=== PATIENT | female | born 1965 | race Caucasian/White ===

== ENCOUNTER 2020-01-29 10:41 | Day surgery (SDC) | payer BC ==
[2020-01-28 10:01] VITALS: BMI 28.1
[~2020-01-29 10:41] MED LIST: ALBUTEROL NEB (CONC) 2.5 MG/0.5 ML INHALATION ONE; LACTATED RINGERS 1,000 ML IV SCH; LIDOCAINE 1% (10MG/ML) FOR IV START INTRADERMA PRN; LIDOCAINE 2% (PF) 20 MG/ML 5 ML VIAL INHALATION ONE; LIDOCAINE VISCOUS 300 MG/15 ML CUP MUCOUS MEM ONE; SODIUM CHLORIDE 0.9% 1,000 ML IV SCH
[2020-01-29] MEDS ORDERED: MIDAZOLAM 2 MG/2 ML VIAL IV ONE (11:48)
[2020-01-29] MEDS ORDERED: PROPOFOL 10 MG/ML 20 ML VIAL IV ONE (12:00)
[2020-01-29] MEDS ORDERED: LIDOCAINE 1% INJ 10MG/ML (20 ML MDV) ONE (12:00)
[2020-01-29] MEDS ORDERED: SUCCINYLCHOLINE CHLORIDE 100 MG/5 ML SYR IV ONE (12:00)
[2020-01-29 12:39] VITALS: TEMP 98.4
[2020-01-29 12:55] VITALS: RESP 16
[2020-01-29 13:28] VITALS: BP 115/69; PULSE 67
--- NOTE | 2020-01-29 15:16 | PCN ---
PROCEDURE NOTE PROCEDURE: Bronchoscopy and bronchoalveolar lavage of the lingula, right middle lobe, and left lower lobe. PREOPERATIVE DIAGNOSIS: Atypical pneumonia, a tree-in-bud appearance on CT of the chest. POSTOPERATIVE DIAGNOSIS: Atypical pneumonia. ANESTHESIA: Used general anesthesia, the patient was intubated prior to the procedure. PROCEDURE DESCRIPTION: Patient was placed in the supine position, she was anesthetized and intubated by [employer] prior to the procedure. After intubation, we were monitored, her O2 saturation continuously, blood pressure was intermittently monitored, and cardiac rhythm was continuously monitored. The bronchoscope was advanced through the endotracheal tube adapter and advanced all the way to the distal trachea. Examination was done of the distal trachea, [place], right upper lobe, right middle lobe, right lower lobe, left upper lobe, lingula, and left lower lobe. There was no evidence of any endobronchial tumors. There was no evidence of any purulent secretions, there was no evidence of any abnormal mucosa in the airways. Then the bronchoscope was wedged in the lingula, and lavage of the lingula was done. Then, we moved down to the left lower lobe. Another lavage was done roughly using 100 mL with each lavage. Then, we moved down to the right middle lobe, and lavage of the right middle lobe was done. All the lavages from different lobes were collected, and sent for different diagnostic studies including viral cultures, AFB cultures and stains, routine cultures, and fungal cultures. Procedure was well tolerated, no evidence of any immediate complications. MMODL / IJN: [id number] /
[2020-01-29 15:46] LABS: Appearance,BF Clear; Color,BF Colorless; Nucleated Cells, Body Fluid 2 /uL
[2020-01-29 15:47] LABS: RBC, Body Fluid 44 /uL
== END 2020-01-29 14:03 | disposition home or self-care (01) ==
LOC: ORWHC2ENDO 10:41
PROVIDERS: ATTEND Internal Medicine
DX: J18.9 Pneumonia, unspecified organism (principal); J45.20 Mild intermittent asthma, uncomplicated; J30.2 Other seasonal allergic rhinitis; H65.90 Unspecified nonsuppurative otitis media, unspecified ear; H69.90 Unspecified Eustachian tube disorder, unspecified ear; J01.90 Acute sinusitis, unspecified; J20.9 Acute bronchitis, unspecified; R94.5 Abnormal results of liver function studies; N20.0 Calculus of kidney; L03.90 Cellulitis, unspecified; R53.81 Other malaise; R53.83 Other fatigue; F41.1 Generalized anxiety disorder; Z88.6 Allergy status to analgesic agent; Z88.2 Allergy status to sulfonamides; Z11.59 Encounter for screening for other viral diseases; Z79.899 Other long term (current) drug therapy; Z79.1 Long term (current) use of non-steroidal anti-inflammatories (NSAID); Z98.890 Other specified postprocedural states; Z90.710 Acquired absence of both cervix and uterus; Z98.49 Cataract extraction status, unspecified eye; Z80.1 Family history of malignant neoplasm of trachea, bronchus and lung; Z82.5 Family history of asthma and other chronic lower respiratory diseases
CPT/HCPCS: 94640; 89050; 87252; 87070; 87205; 87075; 87116; 87102; 87206; 87635; 31624; J2250; J2001 ×2; J0330; J2704; 87496; 87498; 87502; 87529; 87634; 87798; 88108; 88305

== ENCOUNTER → 2020-05-06 | Outpatient (CLI) | payer BC ==
[2020-05-06 18:31] LABS: African American GFR (CKD) 96.2 (60.0-200.0); Anion Gap 9.6 mmol/L (4.00-12.00); BUN/Creat Ratio 26.25 Ratio (12.00-20.00); Calcium 9.3 mg/dL (8.7-10.3); Carbon Dioxide 24.4 mmol/L (21.6-31.8); Potassium 4.6 mmol/L (3.5-5.5)
== END | disposition home or self-care (01) ==
LOC: LABWHC1 10:52
PROVIDERS: ATTEND Internal Medicine Cardiovascular Disease
DX: I10 Essential (primary) hypertension (principal)
CPT/HCPCS: 36415; 80048

== ENCOUNTER → 2020-10-27 | Outpatient (CLI) | payer BC ==
--- NOTE | 2020-10-27 17:31 | CT ---
EXAMINATION TYPE: CT chest angio for PE DATE OF EXAM: 10/27/2020 COMPARISON: Radiograph 09/10/2020. HISTORY: chest congestion, hx of covid CT DLP: 592 mGycm Automated exposure control for dose reduction was used. CONTRAST: CT Chest for pulmonary embolism performed with with IV Contrast, patient injected with 64cc mL of Iso kathleen 370. FINDINGS: LUNGS: The lungs are grossly clear, there is no concerning parenchymal mass or nodule identified. T here is no pleural effusion or pneumothorax seen. The tracheobronchial tree is patent. MEDIASTINUM: There is satisfactory enhancement of the pulmonary artery and its branches, there is no CT evidence for pulmonary embolism. There are no greater than 1 cm hilar or mediastinal lymph nodes. No pericardial effusion is seen. OTHER: 0.8 cm nonaggressive sclerotic focus within T3 vertebral body, most likely bone island in the absence of known malignancy. Otherwise no additional significant abnormality is seen. IMPRESSION: No acute pulmonary embolus or other cardiopulmonary abnormality. Incidental finding as above.
== END | disposition home or self-care (01) ==
LOC: RADCTMAIN 16:19
PROVIDERS: ATTEND Internal Medicine
DX: U07.1 COVID-19 (principal); Z88.2 Allergy status to sulfonamides; Z88.8 Allergy status to other drugs, medicaments and biological substances; Z88.6 Allergy status to analgesic agent
CPT/HCPCS: 71275; Q9967